=== PATIENT | female | born 1985 | race Caucasian/White ===

== ENCOUNTER 2022-01-31 13:58 | Emergency (ER) | payer OTHER ==
[2022-01-31] MEDS ORDERED: NA CHLORIDE 0.9% 1,000 ML ONE (17:21)
[2022-01-31] MEDS ORDERED: FAMOTIDINE 20 MG/2 ML VIAL IV ONE (17:21)
[2022-01-31] MEDS ORDERED: ONDANSETRON 4 MG/2 ML VIAL ONE (17:21)
[2022-01-31 17:24] LABS: Absolute Lymphocytes (CBC) 1.4 K/uL (0.7-4.9); Hematocrit 39.4 % (36.0-45.0); Lymphocytes % 17.1 % (15.3-44.8); MCV 94.1 fL (80-100); MPV 8.6 fL (7.6-11.3); RBC Red Blood Cell Count 4.18 M/uL (3.86-4.86)
[2022-01-31 17:38] LABS: Albumin 3.6 g/dL (3.4-5.0); Bilirubin Total 1.8 mg/dL (0.2-1.0); Protein, Total 6.9 g/dL (6.4-8.2)
[2022-01-31 17:39] LABS: Potassium 4.1 mmol/L (3.5-5.1)
[2022-01-31 18:12] LABS: SARS-CoV-2 Antigen Rapid Res Negative (Negative)
--- NOTE | 2022-01-31 18:25 | EDPHYS ---
Physician Documentation [facility] Name: Jackelin Mendes Age: 36 yrs Sex: Female : 1985 Arrival Date: 01/31/2022 Time: 13:59 Bed 18 Private MD: PAMELLA Physician Alfonzo Vázquez HPI: 01/31 16:35 This 36 yrs old Female presents to ER via Ambulatory with complaints of gallbladder. cp 16:35 The patient presents with abdominal pain in the epigastric area. cp 16:35 Onset: The symptoms/episode began/occurred this morning. Associated signs and symptoms: cp Pertinent positives: anorexia, nausea, mid back pain times 4 days, Pertinent negatives: dysuria, fever, headache, vomiting. Severity of pain: in the emergency department the pain has improved moderately. Patient reports she was seen earlier today at [facility] and diagnosed with gallstones. Patient declined transfer for surgical evaluation and was going to f/u with general surgery. Historical: - Allergies: 14:22 azithromycin; ld1 17:41 OXYTOCIN; iw - PMHx: 14:22 Gallstone; ld1 - PSHx: 14:22 section; ld1 - Immunization history:: Adult Immunizations up to date, Client reports receiving the 2nd dose of the Covid vaccine. - Social history:: Smoking status: Patient denies any tobacco usage or history of. Patient/guardian denies using alcohol. ROS: 16:40 Abdomen/GI: Positive for abdominal pain, nausea, anorexia, Negative for vomiting, cp diarrhea, constipation. 16:40 Back: Positive for pain at rest, of the mid back area. cp Exam: 16:45 Constitutional: The patient appears in no acute distress, alert, awake, cp non-diaphoretic, non-toxic, well developed, well nourished. 16:45 Head/Face: Normocephalic, atraumatic. cp 16:45 Eyes: Periorbital structures: appear normal, Conjunctiva: normal, no exudate, no injection, Sclera: no appreciated abnormality, Lids and lashes: appear normal, bilaterally. 16:45 ENT: External ear(s): are unremarkable, Nose: is normal, Mouth: Lips: moist, Oral mucosa: moist, Posterior pharynx: Airway: no evidence of obstruction, patent. 16:45 Chest/axilla: Inspection: normal. 16:45 Cardiovascular: Rate: normal, Rhythm: regular. 16:45 Respiratory: the patient does not display signs of respiratory distress, Respirations: normal, no use of accessory muscles, no retractions, labored breathing, is not present, Breath sounds: are clear throughout, no decreased breath sounds, no stridor, no wheezing. 16:45 Abdomen/GI: Inspection: abdomen appears normal, Bowel sounds: active, all quadrants, Palpation: soft, in all quadrants, moderate abdominal tenderness, in the epigastric area and right upper quadrant, rebound tenderness, is not appreciated, involuntary guarding, is not appreciated. 16:45 Back: pain, that is moderate, of the mid back area, ROM is normal. 16:45 Skin: no rash present. 16:45 Neuro: Orientation: to person, place \T\ time. Mentation: is normal, Motor: moves all fours, strength is normal, Sensation: is normal. Vital Signs: 14:20 BP 120 / 83; Pulse 84; Resp 18; Temp 97.9(O); Pulse Ox 99% on R/A; Weight 81.19 kg; ld1 Height 5 ft. 4 in. (162.56 cm); Pain 7/10; 19:25 BP 112 / 67; Pulse 86; Resp 18; Pulse Ox 100% on R/A; ld1 20:30 BP 102 / 63; Pulse 77; Resp 18; Pulse Ox 100% on R/A; ld1 21:33 BP 96 / 56; Pulse 79; Resp 18; Pulse Ox 97% on R/A; ld1 14:20 Body Mass Index 30.72 (81.19 kg, 162.56 cm) ld1 MDM: 14:24 Patient medically screened. 01/31 16:27 Order name: CBC with Diff; Complete Time: 17:35 cp 01/31 17:35 Interpretation: Normal except: SAMINA% 76.0. 01/31 16:27 Order name: CMP; Complete Time: 18:22 cp 01/31 18:22 Interpretation: Reviewed. 01/31 16:27 Order name: Lipase; Complete Time: 18:22 cp 01/31 16:28 Order name: SARS RAPID; Complete Time: 18:22 cp 01/31 16:27 Order name: US Abdomen Limited: gallbladder; Complete Time: 19:03 cp 01/31 19:06 Interpretation: Report reviewed. 01/31 19:09 Order name: Urine Dipstick-Ancillary; Complete Time: 19:16 EDCO 01/31 16:27 Order name: IV Saline Lock; Complete Time: 17:17 01/31 16:27 Order name: Labs collected and sent; Complete Time: 17:17 01/31 16:27 Order name: Urine Dipstick-Ancillary (obtain specimen); Complete Time: 19:07 01/31 16:27 Order name: Urine Test (obtain specimen); Complete Time: 19:07 01/31 17:38 Order name: NPO; Complete Time: 19:00 cp Administered Medications: 17:29 Drug: NS 0.9% 1000 ml Route: IV; Rate: 1 bolus; Site: left forearm; iw 17:29 Not Given (Patient Refused): Pepcid (famotidine) 20 mg IVP once; dilute with 10 mL 0.9% iw NaCl; give over 2 minutes 17:29 Not Given (Patient Refused): Zofran (Ondansetron) 4 mg IVP once; over 2 minutes iw 19:25 Drug: Zosyn (piperacillin-tazobactam) 3.375 grams Route: IVPB; Infused Over: 60 mins; ld1 Site: left antecubital; 19:25 Not Given (Patient Refused): morphine 2 mg IVP once over 4 mins ld1 19:25 Not Given (Patient Refused): morphine 2 mg IVP once over 4 mins ld1 Disposition Summary: 01/31/22 18:25 Transfer Ordered Transfer Location: [facility] cp Reason: Higher level of care cp Condition: Stable cp Problem: new cp Symptoms: have improved cp Accepting Physician: DR Coty Berg(01/31/22 21:34) ld1 Diagnosis - Calculus of gallbladder and bile duct with acute cholecystitis with obstruction cp Forms: - Medication Reconciliation Form cp - SBAR form cp Addendum: 02/03/2022 08:02 Co-signature as Attending Physician, Alfonzo Vázquez MD I agree with the assessment and c khan plan of care. Signatures: Dispatcher [employer] EDCO Alfonzo Vázquez MD MD cha Williams, Irene RN RN iw Alfonzo Trevino PA PA cp Dibbern, Fide, RN RN ld1 Corrections: (The following items were deleted from the chart) 01/31 14:22 14:22 Allergies: No Known Allergies; ld1 ld1 17:35 17:35 Normal except. cp cp 19:19 18:25 doctor cp cp 21:34 19:19 DR Coty Berg cp ld1
--- NOTE | 2022-01-31 18:25 | ER ---
Nurse's Notes [facility] Name: Jackelin Mendes Age: 36 yrs Sex: Female : 1985 Arrival Date: 01/31/2022 Time: 13:59 Bed 18 Private MD: Diagnosis: Calculus of gallbladder and bile duct with acute cholecystitis with obstruction Presentation: 01/31 14:20 Chief complaint: Patient states: Went to [facility] - gallstones. Pt reports ld1 going home with prescriptions but "wants to be admitted.". Coronavirus screen: At this time, the client does not indicate any symptoms associated with coronavirus-19. Ebola Screen: No symptoms or risks identified at this time. Initial Sepsis Screen: Does the patient meet any 2 criteria? No. Patient's initial sepsis screen is negative. Does the patient have a suspected source of infection? No. Patient's initial sepsis screen is negative. Risk Assessment: Do you want to hurt yourself or someone else? Patient reports no desire to harm self or others. Onset of symptoms was January 31, 2022. 14:20 Method Of Arrival: Ambulatory ld1 14:20 Acuity: OBED 3 ld1 Triage Assessment: 14:22 General: Appears in no apparent distress. uncomfortable, Behavior is calm, cooperative, ld1 appropriate for age. Pain: Complains of pain in abdomen Pain does not radiate. Pain currently is 7 out of 10 on a pain scale. Quality of pain is described as sharp, shooting, throbbing. EENT: No signs and/or symptoms were reported regarding the EENT system. Neuro: Level of Consciousness is awake, alert, obeys commands, Oriented to person, place, time, situation, Appropriate for age. Cardiovascular: Capillary refill < 3 seconds Patient's skin is warm and dry. Respiratory: Airway is patent Respiratory effort is even, unlabored. GI: Abdomen is round non-distended. : No signs and/or symptoms were reported regarding the genitourinary system. Derm: No signs and/or symptoms reported regarding the dermatologic system. Musculoskeletal: No signs and/or symptoms reported regarding the musculoskeletal system. Historical: - Allergies: 14:22 azithromycin; ld1 17:41 OXYTOCIN; iw - PMHx: 14:22 Gallstone; ld1 - PSHx: 14:22 section; ld1 - Immunization history:: Adult Immunizations up to date, Client reports receiving the 2nd dose of the Covid vaccine. - Social history:: Smoking status: Patient denies any tobacco usage or history of. Patient/guardian denies using alcohol. Screenin:26 Abuse screen: Denies threats or abuse. Denies injuries from another. Nutritional ld1 screening: No deficits noted. Tuberculosis screening: No symptoms or risk factors identified. Fall Risk None identified. Assessment: 19:26 General: Appears in no apparent distress. comfortable, Behavior is calm, cooperative, ld1 appropriate for age. Pain: Complains of pain in abdomen Pain does not radiate. Pain currently is 6 out of 10 on a pain scale. Quality of pain is described as throbbing. Neuro: Level of Consciousness is awake, alert, obeys commands, Oriented to person, place, time, situation. Cardiovascular: Capillary refill < 3 seconds Patient's skin is warm and dry. Respiratory: Airway is patent Respiratory effort is even, unlabored. GI: Abdomen is round non-distended, Reports lower abdominal pain, upper abdominal pain. : No signs and/or symptoms were reported regarding the genitourinary system. EENT: No signs and/or symptoms were reported regarding the EENT system. Derm: No signs and/or symptoms reported regarding the dermatologic system. Musculoskeletal: No signs and/or symptoms reported regarding the musculoskeletal system. 21:33 Reassessment: Patient appears in no apparent distress at this time. Patient and/or ld1 family updated on plan of care and expected duration. Pain level reassessed. Patient is alert, oriented x 3, equal unlabored respirations, skin warm/dry/pink. Vital Signs: 14:20 BP 120 / 83; Pulse 84; Resp 18; Temp 97.9(O); Pulse Ox 99% on R/A; Weight 81.19 kg; ld1 Height 5 ft. 4 in. (162.56 cm); Pain 7/10; 19:25 BP 112 / 67; Pulse 86; Resp 18; Pulse Ox 100% on R/A; ld1 20:30 BP 102 / 63; Pulse 77; Resp 18; Pulse Ox 100% on R/A; ld1 21:33 BP 96 / 56; Pulse 79; Resp 18; Pulse Ox 97% on R/A; ld1 14:20 Body Mass Index 30.72 (81.19 kg, 162.56 cm) ld1 ED Course: 13:59 Patient arrived in ED. as 14:02 Alfonzo Trevino PA is PHCP. cp 14:02 Alfonzo Vázquez MD is Attending Physician. cp 14:22 Triage completed. ld1 14:22 Arm band placed on right wrist. ld1 17:14 Darlin Kirkpatrick RN is Primary Nurse. iw 17:14 Inserted saline lock: 22 gauge in left forearm, using aseptic technique. iw 18:18 US Abdomen Limited: gallbladder In Process Unspecified. EDMS 19:26 Patient has correct armband on for positive identification. Placed in gown. Bed in low ld1 position. Call light in reach. Side rails up X2. cardiac monitor technician on. Pulse ox on. NIBP on. Door closed. Noise minimized. Warm blanket given. 19:26 No provider procedures requiring assistance completed. ld1 21:33 Patient transferred, IV remains in place. ld1 Administered Medications: 17:29 Drug: NS 0.9% 1000 ml Route: IV; Rate: 1 bolus; Site: left forearm; iw 17:29 Not Given (Patient Refused): Pepcid (famotidine) 20 mg IVP once; dilute with 10 mL 0.9% iw NaCl; give over 2 minutes 17:29 Not Given (Patient Refused): Zofran (Ondansetron) 4 mg IVP once; over 2 minutes iw 19:25 Drug: Zosyn (piperacillin-tazobactam) 3.375 grams Route: IVPB; Infused Over: 60 mins; ld1 Site: left antecubital; 19:25 Not Given (Patient Refused): morphine 2 mg IVP once over 4 mins ld1 19:25 Not Given (Patient Refused): morphine 2 mg IVP once over 4 mins ld1 Medication: 19:26 VIS not applicable for this client. ld1 Outcome: 18:25 ER care complete, transfer ordered by . cp 21:33 Transferred by ground EMS to [facility]. ld1 21:33 Condition: stable 21:33 Instructed on the need for transfer. 21:34 Patient left the ED. ld1 Signatures: Dispatcher [employer] EDMS Tricia Navarro as Darlin Kirkpatrick RN RN iw Page, TARAH Mejía cp, Lauren, RN RN ld1 Corrections: (The following items were deleted from the chart) 14: 14:22 Allergies: No Known Allergies; ld1 ld1 17:29 17:29 Pepcid (famotidine) 20 mg IVP in left forearm iw iw
--- NOTE | 2022-01-31 18:44 | RAD REPORT ---
EXAM DESCRIPTION: US - Abdomen Exam Limited - 01/31/2022 6:16 pm CLINICAL HISTORY: ABD PAIN COMPARISON: No comparisons FINDINGS: The gallbladder demonstrates extensive cholelithiasis. No pericholecystic fluid or gallbla dder wall thickening. The common bile duct is normal measuring 5-6 mm.. The liver demonstrates no findings of intrahepatic biliary dilatation. IMPRESSION: Extensive cholelithiasis.
[2022-01-31 19:08] LABS: Urine Blood 2+ (Negative); Urine Glucose Trace (Negative); Urine Protein Negative (Negative)
[2022-01-31] MEDS ORDERED: PIPERACIL/TAZO 3.375 GM VIAL IV ONE (19:16)
[2022-01-31] MEDS ORDERED: NA CHLORIDE 0.9% 100 ML IV ONE (19:16)
[2022-01-31] MEDS ORDERED: NA CHLORIDE 0.9% 250 ML ONE (19:16)
[2022-01-31] MEDS ORDERED: MORPHINE 4 MG/ML SYR ONE (19:16)
[2022-01-31 21:38] VITALS: TEMP 97.9
[2022-01-31 21:41] VITALS: BP 96/56; O2SAT 97
== END 2022-01-31 21:34 | disposition short-term general hospital (02) ==
LOC: ER 13:58
DX: K80.63 Calculus of gallbladder and bile duct with acute cholecystitis with obstruction (principal); Z88.1 Allergy status to other antibiotic agents; Z88.8 Allergy status to other drugs, medicaments and biological substances; Z20.822 Contact with and (suspected) exposure to COVID-19
CPT/HCPCS: 85025; 36415; 81003; 83690; 80053; 76705; 96374; 99285; 87811; J2543; J7050; J7030; J2405

== ENCOUNTER 2022-02-20 09:06 | Emergency (ER) | payer OTHER ==
[2022-02-20 09:36] LABS: Urine Blood 3+ (Negative); Urine Glucose Negative (Negative); Urine Protein Negative (Negative)
--- NOTE | 2022-02-20 09:44 | RAD REPORT ---
EXAM DESCRIPTION: CT - Head Brain Wo Cont - 02/20/2022 9:34 am CLINICAL HISTORY: R sided GRAY x 1 week COMPARISON: No comparisons TECHNIQUE: All CT scans are performed using dose optimization technique as appropriate and may inclu de automated exposure control or mA/KV adjustment according to patient size. FINDINGS: No intracranial hemorrhage, hydrocephalus or extra-axial fluid collection.No areas of brai n edema or evidence of midline shift. Mild mucosal thickening left maxillary antrum. The paranasal sinuses and mastoids are otherwise clear . The calvarium is intact. IMPRESSION: No acute intracranial abnormality.
[2022-02-20 09:52] LABS: Absolute Lymphocytes (CBC) 1.3 K/uL (0.7-4.9); Hematocrit 40.1 % (36.0-45.0); Lymphocytes % 23.5 % (15.3-44.8); MCV 94.7 fL (80-100); MPV 7.7 fL (7.6-11.3); RBC Red Blood Cell Count 4.24 M/uL (3.86-4.86)
[2022-02-20] MEDS ORDERED: NA CHLORIDE 0.9% 1,000 ML ONE (09:52)
[2022-02-20] MEDS ORDERED: KETOROLAC 30 MG/ML INJ ONE (09:52)
[2022-02-20] MEDS ORDERED: ONDANSETRON 4 MG/2 ML VIAL ONE (09:52)
[2022-02-20] MEDS ORDERED: FAMOTIDINE 20 MG/2 ML VIAL IV ONE (09:52)
[2022-02-20 10:10] LABS: Albumin 3.8 g/dL (3.4-5.0); Bilirubin Total 0.9 mg/dL (0.2-1.0); Potassium 4.3 mmol/L (3.5-5.1); Protein, Total 7.5 g/dL (6.4-8.2)
[2022-02-20 10:13] LABS: SARS-COV-2 RT PCR NEGATIVE (NEGATIVE)
--- NOTE | 2022-02-20 10:27 | ER ---
Nurse's Notes [facility] Name: Jackelin Mendes Age: 36 yrs Sex: Female : 1985 Arrival Date: 02/20/2022 Time: 09:11 Bed 15 Private MD: Diagnosis: Nausea with vomiting, unspecified;Headache Presentation: 02/20 09:22 Chief complaint: Patient states: vomited once yesterday, had gallbladder removed feb 05, iw also has had right sided headache. Coronavirus screen: Client presents with at least one sign or symptom that may indicate coronavirus-19. Ebola Screen: Patient negative for fever greater than or equal to 101.5 degrees Fahrenheit, and additional compatible Ebola Virus Disease symptoms Patient denies exposure to infectious person. Patient denies travel to an Ebola-affected area in the 21 days before illness onset. No symptoms or risks identified at this time. Initial Sepsis Screen: Does the patient meet any 2 criteria? No. Patient's initial sepsis screen is negative. Does the patient have a suspected source of infection? No. Patient's initial sepsis screen is negative. Risk Assessment: Do you want to hurt yourself or someone else? Patient reports no desire to harm self or others. 09:22 Method Of Arrival: Ambulatory iw 09:22 Acuity: OBED 3 iw 09:28 Onset of symptoms is unknown. bp Triage Assessment: 09:25 Headache History: The patient has had previous headaches and this one is different than bp previous episodes. General: Appears in no apparent distress. comfortable, Behavior is cooperative, appropriate for age, anxious. Pain: Complains of pain in head Pain currently is 6 out of 10 on a pain scale. Pain began 2-3 days ago. Also complains of nausea. EENT: No deficits noted. Neuro: Level of Consciousness is awake, alert, obeys commands, Oriented to Appropriate for age Reports headache. Cardiovascular: No deficits noted. Respiratory: No deficits noted. GI: Reports nausea, vomiting. : No signs and/or symptoms were reported regarding the genitourinary system. Derm: No deficits noted. Musculoskeletal: No deficits noted. Historical: - Allergies: 09:23 Azithromycin; iw 09: OXYTOCIN; iw - PMHx: 09: gallstone; iw - PSHx: 09:23 section; iw : Cholecystectomy; iw - Immunization history:: Adult Immunizations up to date. - Social history:: Smoking status: Patient denies any tobacco usage or history of. Screenin:26 [facility] ED Fall Risk Assessment (Adult) History of falling in the last 3 months, bp including since admission No falls in past 3 months (0 pts). Humpty Dumpty Scale Fall Assessment Tool (age< 18yrs) Age 13 years and above (1 pt). Abuse screen: Denies threats or abuse. Denies injuries from another. Nutritional screening: No deficits noted. Tuberculosis screening: No symptoms or risk factors identified. Fall Risk No fall in past 12 months (0 pts). Assessment: : General: SEE TRIAGE NOTE. bp 10:05 Reassessment: PT RETURNED FROM CT. bp 11:25 Reassessment: PT DC HOME AMBULATORY. bp Vital Signs: 09:28 BP 105 / 75; Pulse 92; Resp 16; Temp 98; Pulse Ox 100% ; bp 10:05 BP 96 / 64; Pulse 80; Resp 16; Pulse Ox 100% ; bp 11:25 BP 101 / 65; Pulse 85; Resp 16; Pulse Ox 99% ; bp [place] Coma Score: 10:30 Eye Response: spontaneous(4). Verbal Response: oriented(5). Motor Response: obeys jh7 commands(6). Total: 15. ED Course: 09:11 Patient arrived in ED. jm9 09:17 Kavita Davila FNP is PHCP. jh7 09:17 Deejay Sequeira MD is Attending Physician. jh7 09:18 Sundar Hill, SHAHEED is Primary Nurse. bp 09:23 Triage completed. iw 09:23 Arm band placed on. iw 09:26 Patient has correct armband on for positive identification. Bed in low position. Call bp light in reach. Side rails up X2. 09:36 CT Head Brain wo Cont In Process Unspecified. EDMS 09:36 COVID-19/FLU A+B Sent. rs5 09:48 CBC with Diff Sent. rs5 09:48 CMP Sent. rs5 09:48 Lipase Sent. rs5 09:48 Urine collected: clean catch specimen, clear. Inserted saline lock: 20 gauge in left rs5 forearm, using aseptic technique. Blood collected. 11:25 No provider procedures requiring assistance completed. IV discontinued, intact, bp bleeding controlled, No redness/swelling at site. Pressure dressing applied. Administered Medications: 09: Drug: NS 0.9% 1000 ml Route: IV; Rate: 1 bolus; Site: left antecubital; bp 11:26 Follow up: IV Status: Completed infusion; IV Intake: 1000ml bp 09:45 Drug: Pepcid (famotidine) 20 mg Route: IVP; Site: left antecubital; bp 11:27 Follow up: Response: No adverse reaction bp 09:45 Drug: Zofran (Ondansetron) 4 mg Route: IVP; Site: left antecubital; bp 11:27 Follow up: Response: No adverse reaction bp 09:45 Drug: Ketorolac 30 mg Route: IVP; Site: left antecubital; bp 11:26 Follow up: Response: No adverse reaction; Pain is decreased bp Medication: 09: VIS not applicable for this client. bp Intake: 11:26 IV: 1000ml; Total: 1000ml. bp Outcome: 10:26 Discharge ordered by MD. allan 11:25 Discharged to home ambulatory. bp 11:25 Condition: stable 11:25 Discharge instructions given to patient, Instructed on discharge instructions, follow up and referral plans. medication usage, Demonstrated understanding of instructions, follow-up care, medications, Prescriptions given X 2. 11:27 Patient left the ED. bp Signatures: Dispatcher [employer] Darlin Rodriges, Sundar Nguyen RN, RN RN bp Mitchell, Jazmin jm9 Kavita Davila, OILSEED MEAT PRESSER OILSEED MEAT PRESSER 7 Bobby Martínez rs5
--- NOTE | 2022-02-20 10:27 | EDPHYS ---
Physician Documentation [facility] Name: Jackelin Mendes Age: 36 yrs Sex: Female : 1985 Arrival Date: 02/20/2022 Time: 09:11 Bed 15 Private MD: ED Physician Deejay Sequeira HPI: 02/20 09:23 This 36 yrs old Female presents to ER via Ambulatory with complaints of Headache > jh7 24hrs Old, Vomiting. 09:23 The patient complains of pain to the forehead and right church. The patient describes jh7 the headache as aching. Onset: The symptoms/episode began/occurred 1 week(s) ago. Associated signs and symptoms: Pertinent positives: nausea, vomiting, chills. 36-year-old female presents for right-sided headache that is intermittent for the past week. Reports that she vomited once yesterday, had diarrhea, and chills. Denies any visual changes, syncope, weakness on one side of the body, or speech difficulty. Reports that she had her gallbladder removed on February 05.. Historical: - Allergies: 09:23 Azithromycin; iw 09: OXYTOCIN; iw - PMHx: 09: gallstone; iw - PSHx: 09: section; iw 09:26 Cholecystectomy; iw - Immunization history:: Adult Immunizations up to date. - Social history:: Smoking status: Patient denies any tobacco usage or history of. ROS: 09:23 ENT: Negative for injury, pain, and discharge, Neck: Negative for injury, pain, and jh7 swelling, Cardiovascular: Negative for chest pain, palpitations, and edema, Respiratory: Negative for shortness of breath, cough, wheezing, and pleuritic chest pain, Back: Negative for injury and pain, MS/Extremity: Negative for injury and deformity, Skin: Negative for injury, rash, and discoloration. 09:23 Constitutional: Positive for body aches, chills, Negative for fever. 09:23 Abdomen/GI: Positive for nausea, vomiting, and diarrhea, Negative for abdominal pain. 09:23 Neuro: Positive for headache, Negative for dizziness, syncope, visual changes. 09:23 All other systems are negative. Exam: 09:23 Constitutional: This is a well developed, well nourished patient who is awake, alert, jh7 and in no acute distress. Head/Face: Normocephalic, atraumatic. Eyes: Pupils equal round and reactive to light, extra-ocular motions intact. Lids and lashes normal. Conjunctiva and sclera are non-icteric and not injected. Cornea within normal limits. Periorbital areas with no swelling, redness, or edema. ENT: Nares patent. No nasal discharge, no septal abnormalities noted. Tympanic membranes are normal and external auditory canals are clear. Oropharynx with no redness, swelling, or masses, exudates, or evidence of obstruction, uvula midline. Mucous membranes moist. Neck: Trachea midline, no thyromegaly or masses palpated, and no cervical lymphadenopathy. Supple, full range of motion without nuchal rigidity, or vertebral point tenderness. No Meningismus. Cardiovascular: Regular rate and rhythm with a normal S1 and S2. No gallops, murmurs, or rubs. Normal PMI, no JVD. No pulse deficits. Respiratory: Lungs have equal breath sounds bilaterally, clear to auscultation and percussion. No rales, rhonchi or wheezes noted. No increased work of breathing, no retractions or nasal flaring. Abdomen/GI: Soft, non-tender, with normal bowel sounds. No distension or tympany. No guarding or rebound. No evidence of tenderness throughout. Back: No spinal tenderness. No costovertebral tenderness. Full range of motion. Skin: Warm, dry with normal turgor. Normal color with no rashes, no lesions, and no evidence of cellulitis. MS/ Extremity: Pulses equal, no cyanosis. Neurovascular intact. Full, normal range of motion. Neuro: Awake and alert, GCS 15, oriented to person, place, time, and situation. Cranial nerves II-XII grossly intact. Motor strength 5/5 in all extremities. Sensory grossly intact. Cerebellar exam normal. Normal gait. Vital Signs: 09:28 BP 105 / 75; Pulse 92; Resp 16; Temp 98; Pulse Ox 100% ; bp 10:05 BP 96 / 64; Pulse 80; Resp 16; Pulse Ox 100% ; bp 11:25 BP 101 / 65; Pulse 85; Resp 16; Pulse Ox 99% ; bp [place] Coma Score: 10:30 Eye Response: spontaneous(4). Verbal Response: oriented(5). Motor Response: obeys jh7 commands(6). Total: 15. MDM: 09:17 Patient medically screened. [facility] 10:30 Differential diagnosis: cerebral vascular accident, migraine, sinusitis, tension 7 headache, Viral infection, Gastroenteritis. Data reviewed: vital signs, nurses notes, lab test result(s), radiologic studies, CT scan. Data interpreted: Pulse oximetry: is 100 %. Interpretation: normal. Counseling: I had a detailed discussion with the patient and/or guardian regarding: the historical points, exam findings, and any diagnostic results supporting the discharge/admit diagnosis, to return to the emergency department if symptoms worsen or persist or if there are any questions or concerns that arise at home. ED course: The patient is currently on her menstrual cycle. The patient stated that over the past few days she has eaten pizza twice and fettuccine [place]. States that she knows that she is not supposed to eat greasy fatty foods after her gallbladder was removed. Suspect that that could be the issue. Advised her to avoid greasy, fatty foods, increase p.o. fluid intake, and rest at home.. 02/20 09:25 Order name: CBC with Diff; Complete Time: 09:57 [facility] 02/20 09:25 Order name: CMP; Complete Time: 10:16 [facility] 02/20 09:25 Order name: Lipase; Complete Time: 10:16 [facility] 02/20 09:25 Order name: COVID-19/FLU A+B; Complete Time: 10:16 [facility] 02/20 09:36 Order name: Urine Dipstick-Ancillary; Complete Time: 09:46 EDOH 02/20 09:25 Order name: IV Saline Lock; Complete Time: 09:48 [facility] 02/20 09:25 Order name: Labs collected and sent; Complete Time: 09:48 [facility] 02/20 09:25 Order name: CT Head Brain wo Cont; Complete Time: 09:46 [facility] 02/20 09:45 Order name: Urine --Ancillary (enter results); Complete Time: 09:57 bd 02/20 09:25 Order name: Urine Dipstick-Ancillary (obtain specimen); Complete Time: 09:36 [facility] 02/20 09:25 Order name: Urine Test (obtain specimen); Complete Time: 09:36 [facility] Administered Medications: 09:45 Drug: NS 0.9% 1000 ml Route: IV; Rate: 1 bolus; Site: left antecubital; bp 11:26 Follow up: IV Status: Completed infusion; IV Intake: 1000ml bp 09:45 Drug: Pepcid (famotidine) 20 mg Route: IVP; Site: left antecubital; bp 11:27 Follow up: Response: No adverse reaction bp 09:45 Drug: Zofran (Ondansetron) 4 mg Route: IVP; Site: left antecubital; bp 11:27 Follow up: Response: No adverse reaction bp 09:45 Drug: Ketorolac 30 mg Route: IVP; Site: left antecubital; bp 11:26 Follow up: Response: No adverse reaction; Pain is decreased bp Disposition: 10:38 Co-signature as Attending Physician, Deejay Sequeira MD I agree with the assessment and rt plan of care. Disposition Summary: 02/20/22 10:26 Discharge Ordered Location: Home [facility] Problem: new [facility] Symptoms: have improved [facility] Condition: Stable [facility] Diagnosis - Nausea with vomiting, unspecified [facility] - Headache [facility] Followup: [facility] - With: Private Physician - When: 2 - 3 days - Reason: Recheck today's complaints Discharge Instructions: - Discharge Summary Sheet [facility] - General Headache Without Cause [facility] - Nausea and Vomiting, Adult [facility] Forms: - Medication Reconciliation Form [facility] - Thank You Letter [facility] Prescriptions: - ondansetron 4 mg Oral tablet,disintegrating - place 1 tablet by TRANSLINGUAL route 4 times per day As needed; 20 tablet; jh7 Refills: 0, Product Selection Permitted - Levsin 0.125 mg Oral Tablet - take 1 tablet by ORAL route every 8 hours; 30 tablet; Refills: 0, Product jh7 Selection Permitted Signatures: Dispatcher [employer] EDOH Darlin Kirkpatrick RN SHAHEED iw Sundar Hill RN RN bp Kavita Davila, PRECISION LENS GENERATOR PRECISION LENS GENERATOR [facility] Deejay Sequeira MD MD rt Corrections: (The following items were deleted from the chart) 11:13 10:30 ED course: The patient stated that over the past few days she has eaten pizza jh7 twice and fettuccine [place]. States that she knows that she is not supposed to eat greasy fatty foods after her gallbladder was removed. Suspect that that could be the issue. Advised her to avoid greasy, fatty foods, increase p.o. fluid intake, and rest at home.. jh7
[2022-02-20 11:40] VITALS: TEMP 98
[2022-02-20 11:56] VITALS: BP 101/65; O2SAT 99
== END 2022-02-20 11:27 | disposition home or self-care (01) ==
LOC: ER 09:06
DX: R51.9 Headache, unspecified (principal); R11.2 Nausea with vomiting, unspecified; Z90.49 Acquired absence of other specified parts of digestive tract; Z20.822 Contact with and (suspected) exposure to COVID-19; Z88.1 Allergy status to other antibiotic agents; Z88.5 Allergy status to narcotic agent
CPT/HCPCS: 85025; 36415; 81025; 81003; 83690; 80053; 0240U; 70450; J7030; J2405